=== PATIENT | female | born 1990 | race Hispanic/Latino ===

== ENCOUNTER 2017-04-01 11:00 | Inpatient (IN) | payer BC, MEDICAID ==
[~2017-04-01] VITALS: Ht 167.6 cm; Wt 88.0 kg
[2017-04-01 11:55] LABS: HEMATOCRIT 35.4 % (36-48); MEAN CORPUSCULAR HEMOGLOBIN 32.1 pg (27.0-33.0); MEAN CORPUSCULAR HGB CONC 34.1 g/dL (32.0-36.0); MEAN CORPUSCULAR VOLUME 94.3 fL (79-99); NUCLEATED RED BLOOD CELLS 0.1 % (0.0-0.19); PLATELET COUNT (AUTO) 176 K/uL (130-400); RED BLOOD CELL COUNT(AUTO) 3.75 MIL/uL (4.00-5.50); RED CELL DISTRIBUTION WIDTH 13.2 % (11.0-15.5); WHITE BLOOD COUNT (AUTO) 10.4 K/uL (4.8-10.8)
[2017-04-02] MEDS ORDERED: CALDOLOR 800MG+NS 250ML 250 ML IV PRN (07:00)
[2017-04-02] MEDS ORDERED: LACTATED RINGERS 1000ML 1,000 ML IV SCH (07:00)
[2017-04-02] MEDS ORDERED: CEFAZOLIN SODIUM 1 GM VIAL IVP PRN (07:00)
[2017-04-02 08:21] LABS: HEPATITIS Bs ANTIGEN SCREEN P Negative (Negative)
[2017-04-02] MEDS ORDERED: CEFAZOLIN SODIUM 1 GM VIAL IVP ONE (10:10)
[2017-04-02] MEDS ORDERED: EPHEDRINE-NS PF 50MG/5ML SYRINGE IV ONE (10:10)
[2017-04-02] MEDS ORDERED: ROCURONIUM 10MG/1ML SYR 10 MG/ML ML ONE (10:25)
[2017-04-02] MEDS ORDERED: ONDANSETRON HCL 4 MG/2 ML VIAL ONE (10:25)
[2017-04-02] MEDS ORDERED: GLYCOPYRROLATE 0.2 MG/ML 5 ML VIAL ONE (10:25)
[2017-04-02] MEDS ORDERED: LIDOCAINE HCL-MPF 2% 10ML AMP IJ ONE (10:25)
[2017-04-02] MEDS ORDERED: NEOSTIGMINE METHYLSULFATE 1MG/ML IV ONE (10:25)
[2017-04-02] MEDS ORDERED: LIDOCAINE HCL 4% TOP SOL 50ML MM ONE (10:25)
[2017-04-02] MEDS ORDERED: LIDOCAINE HCL-MPF 1% 2ML VIAL ONE (10:25)
[2017-04-02] MEDS ORDERED: DEXAMETHASONE SOD PHOSPHATE 10MG/ML 1ML VIAL ONE (10:25)
[2017-04-02] MEDS ORDERED: PROPOFOL 10 MG/ML 20ML VIAL IV ONE (10:30)
[2017-04-02] MEDS ORDERED: OXYTOCIN-LR 20 UNITS/1000 ML 1,000 ML IV PRN (10:56)
[2017-04-02] MEDS ORDERED: HYDROCODONE/ACETAMINOPHEN 5/325 MG TAB PO PRN ×3 (11:00→12:15)
[2017-04-02] MEDS ORDERED: MEPERIDINE-PF 75 MG/ML SYG IM PRN (11:00)
[2017-04-02] MEDS ORDERED: ACETAMINOPHEN EXTRA STRENGTH 500 MG TABLET PO PRN (11:00)
[2017-04-02] MEDS ORDERED: LANOLIN 30GM OINTMENT TP PRN (11:00)
[2017-04-02] MEDS ORDERED: SODIUM CHLORIDE 0.9% 10 ML VIAL IVP PRN (11:00)
[2017-04-02] MEDS ORDERED: DIPHENHYDRAMINE HCL 25 MG CAPSULE PO PRN (11:00)
[2017-04-02] MEDS: DIPH,PERTUSS(ACELL),TET VAC/PF 0.5 ML VIAL IM SCH (11:00)
[2017-04-02] MEDS ORDERED: BISACODYL 10 MG SUPP.RECT RC PRN (11:00)
[2017-04-02] MEDS ORDERED: ACETAMINOPHEN-CODEINE 300/30MG TAB PO PRN (11:00)
[2017-04-02] MEDS ORDERED: PROMETHAZINE HCL 25 MG/ML 1ML AMPULE IM PRN ×2 (11:00→12:15)
[2017-04-02] MEDS ORDERED: DEXTROSE 5 %-0.45 % NACL 1,000 ML IV PRN (11:00)
[2017-04-02] MEDS: MEASLES/MUMPS/RUBELLA VACCINE, LIVE 0.5 ML/VIAL SQ SCH (11:00)
[2017-04-02] MEDS ORDERED: ONDANSETRON HCL 4 MG/2 ML VIAL IVP PRN ×2 (12:15)
[2017-04-02] MEDS ORDERED: MORPHINE SULFATE 2 MG/ML 1ML SYG IVP PRN (12:15)
[2017-04-02] MEDS ORDERED: NALOXONE HCL 0.4 MG/1 ML ML IVP PRN ×2 (12:15)
[2017-04-02] MEDS ORDERED: ONDANSETRON HCL 4 MG/2 ML 8 MG in SODIUM CHLORIDE 0.9% 50 ML IVP NR (12:15)
[2017-04-02] MEDS ORDERED: EPHEDRINE SULFATE 50 MG/ML AMPULE IVP PRN (12:15)
[2017-04-02] MEDS ORDERED: METOCLOPRAMIDE 10 MG/2 ML VIAL IVP PRN (12:15)
[2017-04-02] MEDS ORDERED: DiphenhydrAMINE HCL 50 MG/ML VIAL IVP PRN (12:15)
[2017-04-02 12:20] VITALS: BP 109/69
[2017-04-02] MEDS ORDERED: OXYTOCIN 10 USP UNITS/ML ONE ×2 (12:40→18:04)
[2017-04-02] MEDS: HYDROCODONE/ACETAMINOPHEN 5/325 MG TAB PO PRN (14:35)
[2017-04-02] MEDS ORDERED: METHYLERGONOVINE MALEATE 0.2 MG/1 ML ML ONE (15:00)
[2017-04-02] MEDS: METHYLERGONOVINE MALEATE 0.2 MG/1 ML ML IM SCH (15:00)
[2017-04-02 15:24] VITALS: BP 123/70
[2017-04-02] MEDS: CALDOLOR 800MG+NS 250ML 250 ML IV SCH (18:16)
[2017-04-02] MEDS: IBUPROFEN 800 MG TAB PO SCH ×2 (19:00→20:28)
[2017-04-02 19:26] VITALS: BP 98/55
[2017-04-02] MEDS: DOCUSATE SODIUM 100 MG CAP PO SCH (20:51)
[2017-04-02 23:19] VITALS: BP 116/65
[2017-04-03] MEDS: HYDROCODONE/ACETAMINOPHEN 5/325 MG TAB PO PRN ×3 (01:44→17:30)
[2017-04-03] MEDS: CALDOLOR 800MG+NS 250ML 250 ML IV SCH (03:02)
[2017-04-03 03:14] VITALS: BP 98/63
[2017-04-03 07:05] LABS: HEMATOCRIT 27.6 % (36-48); MEAN CORPUSCULAR HEMOGLOBIN 33.5 pg (27.0-33.0); MEAN CORPUSCULAR HGB CONC 35.3 g/dL (32.0-36.0); MEAN CORPUSCULAR VOLUME 94.8 fL (79-99); PLATELET COUNT (AUTO) 142 K/uL (130-400); RED BLOOD CELL COUNT(AUTO) 2.91 MIL/uL (4.00-5.50); RED CELL DISTRIBUTION WIDTH 13.5 % (11.0-15.5); WHITE BLOOD COUNT (AUTO) 17.1 K/uL (4.8-10.8)
[2017-04-03 07:36] VITALS: BP 113/71
[2017-04-03] MEDS: LIDOCAINE 5% TOPICAL PATCH TP SCH (08:17)
[2017-04-03] MEDS: DOCUSATE SODIUM 100 MG CAP PO SCH ×2 (08:17→21:00)
[2017-04-03] MEDS: SIMETHICONE 80 MG TAB.CHEW PO PRN ×5 (08:17→21:00)
[2017-04-03] MEDS: IBUPROFEN 800 MG TAB PO SCH ×2 (08:18→18:17)
[2017-04-03] MEDS: MEASLES/MUMPS/RUBELLA VACCINE, LIVE 0.5 ML/VIAL SQ SCH (11:00)
[2017-04-03] MEDS: DIPH,PERTUSS(ACELL),TET VAC/PF 0.5 ML VIAL IM SCH (11:00)
[2017-04-03 12:22] VITALS: BP 106/67
[2017-04-03] MEDS: METHYLERGONOVINE MALEATE 0.2 MG/1 ML ML IM SCH ×2 (15:00→18:32)
[2017-04-03 16:04] VITALS: BP 113/67
[2017-04-03 20:00] VITALS: BP 103/69
[2017-04-03 23:37] VITALS: BP 99/63
[2017-04-04] MEDS: HYDROCODONE/ACETAMINOPHEN 5/325 MG TAB PO PRN (01:02)
[2017-04-04 03:05] VITALS: BP 97/53
[2017-04-04] MEDS: IBUPROFEN 800 MG TAB PO SCH ×2 (03:05→12:55)
[2017-04-04 07:54] VITALS: BP 122/75
[2017-04-04] MEDS: SIMETHICONE 80 MG TAB.CHEW PO PRN ×2 (08:31→12:54)
[2017-04-04] MEDS: LIDOCAINE 5% TOPICAL PATCH TP SCH (08:31)
[2017-04-04] MEDS: DOCUSATE SODIUM 100 MG CAP PO SCH (08:31)
[2017-04-04 12:00] VITALS: BP 118/65
[2017-04-04] MEDS ORDERED: DOCU-116 PO (12:29)
[2017-04-04] MEDS ORDERED: ACET1TAB12 PO (12:30)
[2017-04-04] MEDS ORDERED: MO8B PO (12:30)
== END 2017-04-04 14:25 | disposition home or self-care (01) | DRG 766 ==
LOC: EDSTATUS 11:00 → LDH 04-02 06:48 → WSH 04-02 12:20
PROVIDERS: ADMIT Obstetrics & Gynecology; ATTEND Obstetrics & Gynecology
PROC: 10D00Z1 Extraction of Products of Conception, Low, Open Approach (ICD-10-PCS; principal; 2017-04-02 10:00)
DX: O34.211 Maternal care for low transverse scar from previous cesarean delivery (principal); O89.4 Spinal and epidural anesthesia-induced headache during the puerperium; Z37.0 Single live birth; Z3A.38 38 weeks gestation of pregnancy
CPT/HCPCS: 36415; 59510; 85027; 86592; 86850; 86900; 86901; 87340; A4344; A4606; J0690; J1100; J1741; J2210; J2405; J2590; J2704; J2710; J3490; J7120

== ENCOUNTER 2017-04-04 22:54 | Emergency (ER) | payer BC, MEDICAID ==
[~2017-04-04 22:54] MED LIST: ACET1TAB12 PO; DOCU-116 PO; MO8B PO
[2017-04-05] MEDS ORDERED: SODIUM CHLORIDE 0.9% 1000ML 1,000 ML IV ONE ×2 (00:40→02:21)
== END 2017-04-05 02:48 | disposition home or self-care (01) ==
LOC: EDH 22:54
DX: O74.5 Spinal and epidural anesthesia-induced headache during labor and delivery (principal); Z3A.00 Weeks of gestation of pregnancy not specified; Z98.890 Other specified postprocedural states
CPT/HCPCS: 96360; 96361; 99285; J7030 ×2

== ENCOUNTER 2019-02-03 07:19 | Day surgery (SDC) | payer OTHER, BC ==
[2019-02-01 11:36] VITALS: BP 110/71
[2019-02-01 11:41] LABS: BASOPHILS % (AUTO) 0.5 % (0.0-5.0); EOSINOPHILS % (AUTO) 0.9 % (0.0-8.0); HEMATOCRIT 39.9 % (36-48); LYMPHOCYTES % (AUTO) 40.5 % (21.0-51.0); MEAN CORPUSCULAR HGB CONC 34.3 g/dL (32.0-36.0); MEAN CORPUSCULAR VOLUME 93.5 fL (79-99); NEUTROPHILS % (AUTO) 51.1 % (40.0-77.0); NUCLEATED RED BLOOD CELLS 0.1 % (0.0-0.19); PLATELET COUNT (AUTO) 138 K/uL (130-400); RED BLOOD CELL COUNT(AUTO) 4.27 MIL/uL (4.00-5.50); RED CELL DISTRIBUTION WIDTH 12.4 % (11.0-15.5); WHITE BLOOD COUNT (AUTO) 5.5 K/uL (4.8-10.8)
[~2019-02-03] VITALS: Ht 167.6 cm; Wt 71.7 kg
[2019-02-03] VITALS (13 sets, daily range): BP systolic 105–126; BP diastolic 62–85
[~2019-02-03 07:19] MED LIST changes: -ACET1TAB12 PO; +CALDOLOR 800MG+NS 250ML 250 ML IV PRN; -DOCU-116 PO; -MO8B PO
[2019-02-03] MEDS: LACTATED RINGERS 1000ML 1,000 ML IV SCH ×2 (08:13→09:32)
[2019-02-03] MEDS: CEFAZOLIN SODIUM 1 GM VIAL IVP ONE ×2 (08:21→08:40)
[2019-02-03] MEDS ORDERED: BUPIVACAINE/PF 0.25% 30ML VIAL IJ ONE (08:26)
[2019-02-03] MEDS ORDERED: SUCCINYLCHOLINE 200MG/10ML SYR ONE (08:40)
[2019-02-03] MEDS ORDERED: LIDOCAINE PF 2% 5ML ABBOJECT ONE (08:40)
[2019-02-03] MEDS ORDERED: MIDAZOLAM HCL 1 MG/ML 2ML VIAL ONE (08:41)
[2019-02-03] MEDS ORDERED: PROPOFOL 10 MG/ML 20ML VIAL IV ONE (08:41)
[2019-02-03] MEDS ORDERED: ROCURONIUM 10MG/1ML SYR 10 MG/ML ML ONE (08:41)
[2019-02-03] MEDS ORDERED: FENTANYL CITRATE PF 50 MCG/1 ML 2ML VIAL ONE (08:44)
[2019-02-03] MEDS ORDERED: ONDANSETRON HCL 4 MG/2 ML VIAL ONE (08:55)
[2019-02-03] MEDS ORDERED: DEXAMETHASONE SOD PHOSPHATE 10MG/ML 1ML VIAL ONE (08:55)
[2019-02-03] MEDS ORDERED: GLYCOPYRROLATE 1 MG/5 ML SYRINGE ONE (09:11)
[2019-02-03] MEDS ORDERED: NEOSTIGMINE 5MG/5ML SYR IV ONE (09:12)
--- NOTE | 2019-02-03 11:08 | NUR ---
PT LEFT VIA WHEELCHAIR IN PVT CAR WITH SPOUSE. D/C INSTRUCTIONS GIVE TO SPOUSE ALONG WITH F/U APPT. NO COMPLICATIONS UPON D/C PT. STABLE
== END 2019-02-03 11:08 ==
LOC: DAH 07:19
PROVIDERS: ATTEND Obstetrics & Gynecology
DX: Z30.2 Encounter for sterilization (principal); Z98.890 Other specified postprocedural states
CPT/HCPCS: 36415; 58301; 58670; 84703; 85025; 86850; 86900; 86901; A4215; A4221; A4222; A4223; A4351; A4663; A4930; A6260; C1769 ×2; G0168; J0330; J0690; J1100; J1741; J2001; J2250; J2405; J2704; J2710; J3010; J3490 ×2; J7030; J7120

== ENCOUNTER 2023-04-20 17:00 | Emergency (ER) | payer BC, OTHER ==
[~2023-04-20] VITALS: Ht 167.6 cm; Wt 68.0 kg
[2023-04-20 17:41] LABS: CREATININE 0.6 mg/dL (0.5-1.5); POTASSIUM 3.7 mmol/L (3.5-5.1)
[2023-04-20 17:46] LABS: ALBUMIN 3.9 g/dL (3.5-5.0); BILIRUBIN,TOTAL 0.2 mg/dL (0.2-1.0); TOTAL PROTEIN, SERUM 7.7 g/dL (6.0-8.3)
[2023-04-20 17:47] LABS: B-TYPE NATRIURETIC PEPTIDE 5 pg/mL (0-100)
[2023-04-20 17:50] LABS: BASOPHILS # (AUTO) 0.03 K/uL (0.00-0.20); BASOPHILS % (AUTO) 0.5 % (0.0-5.0); EOSINOPHILS # (AUTO) 0.07 K/uL (0.00-0.70); EOSINOPHILS % (AUTO) 1.1 % (0.0-8.0); HEMATOCRIT 37.5 % (36-48); IMMATURE GRANULOCYTE ABSOLUTE 0.01 K/uL (0-1); LYMPHOCYTES # (AUTO) 2.6 K/uL (1.0-4.8); LYMPHOCYTES % (AUTO) 40.9 % (21.0-51.0); MEAN CORPUSCULAR HEMOGLOBIN 32.5 pg (27.0-33.0); MEAN CORPUSCULAR HGB CONC 34.7 g/dL (32.0-36.0); MEAN CORPUSCULAR VOLUME 93.8 fL (79-99); MONOCYTES # (AUTO) 0.3 K/uL (0.1-1.0); MONOCYTES % (AUTO) 5.1 % (3.0-13.0); NEUTROPHILS # (AUTO) 3.4 K/uL (1.8-7.7); NEUTROPHILS % (AUTO) 52.2 % (40.0-77.0); PLATELET COUNT (AUTO) 154 K/uL (130-400); RED CELL DISTRIBUTION WIDTH 12.8 % (11.0-15.5); WHITE BLOOD COUNT (AUTO) 6.5 K/uL (4.8-10.8)
[2023-04-20 18:50] VITALS: BP 125/85; PULSE 78; RESP 18; O2SAT 100
[2023-04-20] MEDS ORDERED: IBUP-2070 PO (19:22)
[2023-04-20] MEDS ORDERED: METH-811 PO (19:22)
[2023-04-20] MEDS ORDERED: PRED20TA3 PO (19:22)
[2023-04-20] MEDS ORDERED: PREDNISONE 20 MG TABLET PO ONE (19:30)
[2023-04-20] MEDS ORDERED: TIZANIDINE HCL 2 MG TABLET PO SCH (19:30)
== END 2023-04-20 20:11 | disposition home or self-care (01) ==
LOC: EDH 17:00
DX: S46.811A Strain of other muscles, fascia and tendons at shoulder and upper arm level, right arm, initial encounter (principal); Z79.899 Other long term (current) drug therapy; Z98.890 Other specified postprocedural states; X58.XXXA Exposure to other specified factors, initial encounter; Y93.89 Activity, other specified; Y92.89 Other specified places as the place of occurrence of the external cause; Y99.8 Other external cause status
CPT/HCPCS: 36415; 71045; 80053; 82550; 83880; 84484; 85025; 93005